=== PATIENT | male | born 1950 | race Caucasian/White ===

== ENCOUNTER 2020-06-08 12:29 | Emergency (ER) | payer MEDICARE, SELFPAY ==
[2020-06-08] VITALS (11 sets, daily range): BP systolic 133–156; BP diastolic 62–87; PULSE 59–83; RESP 15–24; TEMP 36.4–36.6; O2SAT 97–100
--- NOTE | ~2020-06-08 | CT_ITS ---
EXAMINATION: CT brain wo con DATE: 06/08/2020 13:59 INDICATION: Left hand numbness. TECHNIQUE: Computed tomography (CT) of the head was performed without intravenous contrast. The mA wa s adjusted according to patient size. Iterative reconstruction technique was employed. The dose-lengt h product was 681.00 mGy-cm. COMPARISON: None FINDINGS: There is chronic encephalomalacia in right frontoparietal region. There is chronic encephal omalacia in right temporal lobe and inferior right frontal lobe. 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 There is chronic encephalomalacia in left frontoparietal region. There is chronic encephalom alacia in left temporal lobe. There is no intracranial hemorrhage, acute infarction, or abnormal intr acranial mass lesion. The ventricles are normal in size. The paranasal sinuses are clear. There are l ikely changes of right ocular lens replacement surgery. There are changes of bilateral mastoidectomie s. A right-sided cochlear implant is noted. There is a small right mastoid effusion. IMPRESSION: 1. Areas of chronic encephalomalacia involving the bilateral frontal, temporal, parietal lobes. Reviewed, dictated and finalized at location A.
--- NOTE | ~2020-06-08 | XR_ITS ---
EXAMINATION: XR chest 2V DATE: 06/08/2020 13:01 INDICATION: Midsternal chest pain. TECHNIQUE: Frontal and lateral views of the chest were obtained. COMPARISON: Right shoulder radiographs 11/29/16 FINDINGS: There is chronic elevation of right hemidiaphragm. A calcified left lung nodule is consiste nt with old granulomatous disease. There is blunting of right posterior costophrenic angle. No pneumo thorax. The heart size is normal. There are changes of anterior fusion procedure in cervicothoracic s pine. IMPRESSION: 1. Blunting of right posterior costophrenic angle, consistent with scarring versus tiny pleural effus ion. 2. Chronic elevation of right hemidiaphragm. Reviewed, dictated and finalized at location A. IMPRESSION: 1. Blunting of right posterior costophrenic angle, consistent with scarring mariella adria tiny pleural effusion. 2. Chronic elevation of right hemidiaphragm.
--- NOTE | 2020-06-08 12:36 | ECG_ITS ---
Measurements Intervals [place] Rate: 70 P: 30 VA: 169 QRS: 4 QRSD: 162 T: 17 QT: 413 QTc: 447 Interpretive Statements SINUS RHYTHM WITH MARKED SINUS ARRHYTHMIA RIGHT BUNDLE BRANCH BLOCK BASELINE ARTIFACT- I, II, III, AVR, AVL, AVF, V2 ABNORMAL ECG Electronically Signed On 06-08-2020 13:34:39 CDT by Thaddeus Ndiaye D.O.
--- NOTE | 2020-06-08 12:45 | PC.NURSE ---
patient here with left arm numbness and midsternal CP. see triage notes. assessments documented. alert. oriented. no distress. states he is currently going thru a divorce. feels very stressed and anxious. patient brought back to ED H3. cardiac protocol started.
[2020-06-08 13:03] LABS: Basophils Absolute Auto 0.1 K/mm3 (0.0-0.1); Basophils Percent Auto 0.8 % (0.2-1.2); Eosinophils Absolute Auto 0.1 K/mm3 (0-0.3); Eosinophils Percent Auto 1.4 % (0-4.4); Hematocrit 44.9 % (42.0-52.0); Hemoglobin 15.9 g/dL (14.0-18.0); Immature Granulocyte Absolute 0.05 K/mm3 (0.00-0.031); Immature Granulocyte Percent A 0.7 % (0-0.5); Lymphocytes Absolute Auto 0.99 K/mm3 (0.9-3.2); Lymphocytes Percent Auto 13.6 % (18.3-44.2); Mean Corpuscular HGB Conc 35.4 g/dl (32-36); Mean Corpuscular Hemoglobin 31.5 pg (26-34); Mean Corpuscular Volume 88.9 fl (80-100); Mean Platelet Volume 9.7 fl (7.4-10.4); Monocytes Absolute Auto 0.6 K/mm3 (0.1-0.6); Monocytes Percent Auto 8.3 % (2.6-8.5); Neutrophils Absolute Auto 5.5 K/mm3 (1.3-6.7); Neutrophils Percent Auto 75.2 % (45.5-73.1); Platelet Count Result 208 k/mm3 (150-375); Red Blood Count 5.05 M/mm3 (4.6-6.20); Red Cell Distribution Width 12.3 % (11.5-14.5); White Blood Count 7.3 K/mm3 (4.5-10.0)
[2020-06-08 13:13] LABS: Anion Gap 8 mmol/L (8-16); Blood Urea Nitrogen 20 mg/dL (9-20); Calcium 9.5 mg/dL (8.4-10.2); Carbon Dioxide 32 mmol/L (22-30); Chloride 99 mmol/L (98-107); Estimated Glomerular Filt Rate > 60; Glucose 100 mg/dL (75-110); Sodium 139 mmol/L (137-145)
[2020-06-08 13:14] LABS: Partial Thromboplastin Time 28.1 SECONDS (22.3-36.8); Prothrombin Time 12.9 Seconds (11.1-14.7)
--- NOTE | 2020-06-08 13:20 | ED.NEUROSD ---
HPI - Neuro Symptoms/Deficit General Chief Complaint: Neuro Symptoms/Deficit Stated Complaint: tingling to left arm, CP Time Seen by Provider: 06/08/20 12:37 History of Present Illness HPI Narrative: Patient is a 69-year-old male who presents ER with left hand tingling. The tingling began yesterday evening. It waxes and wanes in intensity. It will go all the way away. It lasts for approximately 30 to 40 seconds at a time. Patient also endorses some mild chest discomfort that he reports feels typical of his acid reflux. This does not seem to occur with the tingling in the hand. No trauma or neck pain or shoulder pain. Has not had symptoms like this before. Patient does report some emotional issues/stress due to the fact that he is going through a divorce. He is concerned that some of the stress could be starting to have physical manifestations could put him at risk for an [place] or CVA. Related Data Home Medications Medication Instructions Recorded Confirmed amlodipine DAILY 06/08/20 bupropion HCl PO BID 06/08/20 celecoxib 100 - 200 mg DAILY PRN 06/08/20 06/08/20 diazepam PRN 06/08/20 esomeprazole magnesium 40 mg BID 06/08/20 06/08/20 famotidine [Pepcid] 40 mg HS 06/08/20 06/08/[address] glucos sul [id number] 2 PO DAILY 06/08/20 [Glucosamine Chondroitin] rosuvastatin 5 mg DAILY 06/08/20 06/08/20 tadalafil [Cialis] mg PRN 06/08/20 tamsulosin 0.4 mg PO DAILY 06/08/20 06/08/20 Allergies Allergy/AdvReac Type Severity Reaction Status Date / Time Penicillins Allergy Unknown Verified 04/22/16 08:56 Review of Systems Review of Systems: All systems reviewed & are unremarkable except as noted in HPI and below Constitutional: Constitutional: Denies chills, Denies fever(s) and Denies weakness ENT: Denies nasal congestion and Denies sore throat Cardiovascular: Cardiovascular: Reports chest pain and Denies radiating jaw, neck or arm pain Respiratory: Respiratory: Denies cough and Denies dyspnea Neurologic: Denies headache(s) and Denies focal weakness Comments: tingling left hand Psychiatric: Psychiatric: Reports depression PMFSH Past Medical History Medical History (Updated 06/08/20 @ 14:34 by Rafat Vargas MD) Bipolar disorder BPH (benign prostatic hyperplasia) Depression GERD (gastroesophageal reflux disease) Hypertension Traumatic brain injury Vertigo Surgical History Surgical History (Updated 06/08/20 @ 14:33 by Rafat Vargas MD) H/O craniotomy H/O neck surgery History of bilateral mastoidectomy History of ear surgery Family History Family History (Updated 04/22/16 @ 14:08 by DOCTOR UNKNOWN) Father Family history of type 2 diabetes mellitus Other Diabetes mellitus Family history of arthritis Family history of cardiovascular disease Social History Social History Smoking status: Former smoker Alcohol intake: never Gender identity (if verbalized by the patient): Male Exam Narrative: Exam Narrative: GENERAL: Well-appearing, well-nourished, and in no acute distress. HEAD: Normocephalic, atraumatic. CHEST: Clear to auscultation. No respiratory distress. HEART: Regular rate and rhythm. Normal peripheral pulses. ABDOMEN: Soft, nontender, nondistended. EXTREMITIES: Normal range of motion. Normal strength. Negative carpal tunnel compression syndrome. No edema. SKIN: Warm, dry, no rash. NEURO: No focal deficits. Alert and oriented x3. PSYCH: Normal mood and affect but becomes tearful when discussing his pending divorce. Course Course Emergency Course: Discussed results with patient. He reports he has history of right bundle branch block. He reports that his hand is no longer having any sorts of tingling. Symptoms seem like they are related to being a radicular issue as opposed to a central nervous issue. Patient be discharged home. 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 Vital Signs Vital signs: Vital Signs Temperature 97.5 F L
[2020-06-08 13:25] LABS: Troponin I < 0.012 ng/mL (0.000-0.034)
--- NOTE | 2020-06-08 15:15 | PC.NURSE ---
discharge instructions reviewed with patient and family member in room. denies questions. denies needs prior to DC. patient ambulating around room without difficulty. steady gait. states he is ready to go home. has FU Tuesday with his PCP and dining services director. patient ambulated to exit with family member.
== END 2020-06-08 15:12 | disposition home or self-care (01) ==
PROVIDERS: Emergency Provider Emergency Medicine
DX: M54.12 Radiculopathy, cervical region (principal); F31.9 Bipolar disorder, unspecified; N40.0 Benign prostatic hyperplasia without lower urinary tract symptoms; K21.9 Gastro-esophageal reflux disease without esophagitis; I10 Essential (primary) hypertension; Z87.820 Personal history of traumatic brain injury; Z87.891 Personal history of nicotine dependence; I45.10 Unspecified right bundle-branch block; R07.9 Chest pain, unspecified
CPT/HCPCS: 36415; 70450; 71046; 80048; 84484; 85025; 85610; 85730; 93005; 99284